=== PATIENT | female | born 1960 | race Caucasian/White ===

== ENCOUNTER → 2021-10-29 | Outpatient (CLI) | payer BC, OTHER ==
[2021-10-29] VITALS (10 sets, daily range): BP systolic 106–127; BP diastolic 61–73
[~2021-10-29] VITALS: Ht 165.1 cm; Wt 68.0 kg
[~2021-10-29] MED LIST: MOBIC7.5 MG PO; TYLENOL EXTRA500 M1 PO; XANAX 0.5 MG0.5 MG PO
[2021-10-29 09:04] LABS: ABSOLUTE NEUTROPHILS 3.8 thou/uL (1.4-8.2); BASOPHILS 0.9 % (0.0-2.0); EOSINOPHILS 2.5 % (0.0-3.0); HEMATOCRIT 40.6 % (37.0-47.0); HEMOGLOBIN 13.9 gm/dL (12.0-15.0); LYMPHOCYTES 25.5 % (24.0-44.0); MCH 33.3 pg (26.0-34.0); MCHC 34.2 g/dL (28.0-37.0); MCV 97.3 fL (80.0-100.0); MONOCYTES 7.6 % (1.0-8.0); PLATELET COUNT 360 thou/uL (150-400); POLYS 63.5 % (36.0-66.0); RBC 4.17 mil/uL (4.20-5.00); RDW 13.2 % (10.5-14.5); WBC 5.9 thou/uL (4.0-11.0)
[2021-10-29 09:23] LABS: APTT 26.7 Seconds (24.5-32.8); INR 0.89; PROTIME 9.8 Seconds (10.5-12.1)
[2021-10-29 09:26] LABS: CREATININE 0.5 mg/dL (0.6-1.0)
[2021-10-29 09:28] LABS: POTASSIUM 4.3 mmol/L (3.5-5.1)
--- NOTE | 2021-11-04 15:07 | PATH ---
[facility] [place] [address] PATHOLOGY RPT PROCEDURE Name: MARLENE COURTNEY Room #: REG ALANNA M.R.#: [id number] Admission: 10/29/21 Date of : 60 Discharge: Report #: [id number] Path Case #: [id number] Note [facility] Accession Number: [id number] TESTS RESULT FLAG UNITS REF RANGE LAB Clinician Provided Cytology Information No. of containers..01 Slide Source: [A] 01 LT ILIAC BONE NEEDLE DIAGNOSIS: [A] 02 LT ILIAC BONE NEEDLE POSITIVE FOR MALIGNANT CELLS. METASTATIC CARCINOMA, FAVOR ADENOCARCINOMA. Comment: Patient's history of right lung mass is noted. The tumor has ample cytoplasm and is forming small 3 dimensional groups and glands.This most likely represents a metastatic adenocarcinoma. This case has been seen by who agrees on 11/04/2021. 's viri Rushing has been notified by on 11/04/21 at 1140 am. Pathologist ICD10: 02 C34.11 Signed out by: 02 Antonette Kelly MD, Pathologist NPI- [id number] Performed by: 01 Miguelina Smith, [employer]ching [employer] ([facility]) Gross description: 01 BLOODY, /LCS 11/03/2021 1833 Local FLAG LEGEND: L-Low Normal,H-High Normal,LL-Alert Low,HH-Alert High <-Panic Low,>-Panic High,A-Abnormal,AA-Critical Abnormal Performed at: 01 [facility] [address] [place] [address] Maykel Rose MD, [address] [address] Antonette Kelly MD, Specimen Comment: A courtesy copy of this report has been sent to [phone] Specimen Comment: Report sent to Performed at: [address] [address] PATHOLOGY RPT PROCEDURE Name: MARLENE COURTNEY Room #: CHRISTELLE ALANNA Akhtar#: [id number] Admission: 10/29/21 Date of : 60 Discharge: Report #: [id number] Path Case #: [id number] [facility] [address], [place], [place] [id number] MD Maykel Rose MD Phone: [phone]
== END | disposition home or self-care (01) ==
LOC: CAT 08:36
PROVIDERS: ATTEND Internal Medicine
DX: C41.4 Malignant neoplasm of pelvic bones, sacrum and coccyx (principal); F41.9 Anxiety disorder, unspecified; Z98.890 Other specified postprocedural states; Z88.2 Allergy status to sulfonamides; Z79.899 Other long term (current) drug therapy